=== PATIENT | female | born 1945 | race Caucasian/White ===

== ENCOUNTER → 2016-08-13 | Outpatient (CLI) | payer MEDICARE, BC ==
[~2016-08-13] MED LIST: ALLEGRA ALLERG180 MG PO; ASPIRIN81 M2 PO; BENZONATATE PO; DIOVAN HCT 320/1 TA2 PO; EVISTA60 M1 PO; FERRO-TIME325 MG PO; LIPITOR20 MG PO; METFORMIN HCL500 M2 PO; MULTIVITAMIN1 UDCAP PO; SYNTHROID75 MCG PO
--- NOTE | ~2016-08-13 | CT55 ---
[facility] A Service of [facility] & [facility] RADIOLOGY TEXT RESULTS PATIENT: LUIS TITUS LOCATION: [facility] : [birth year] UNIT #: [id number] AGE: [address]: Vincenzo Barlow MD SEX: F ORDER DR: [id number] [place] [id number] [facility]. [place], [place] [address] [id number] O MR#: [id number] [facility] #: [id number] NAME: LUIS TITUS : 1945 SEX: F STUDY DATE/TIME: 08/13/2016 16:34 UNIT: [facility] ROOM: STUDY DESCRIPTION: CT Chest W Con Attending Physician: Vincenzo Barlow M.D. Referring Physician: Vincenzo Barlow M.D. Ordering Physician: Vincenzo Barlow M.D. Primary Care Physician: Ai Root M.D. MEDICAL IMAGING REPORT This report is preliminary unless electronic signature is present EXAM CT chest with contrast. INDICATIONS Malignant neoplasm of the left breast. Restaging. Observation for metastatic disease. TECHNIQUE CT of the thorax utilizing 70 mL Isovue-370 IV contrast. Coronal and sagittal reconstructions were obtained. COMPARISON CT thorax dated 02/19/2016, 08/02/2015, 06/19/2014 and 03/14/2014. FINDINGS There is complete atelectasis and volume loss associated with the right upper lobe. The right upper lobe bronchus is occluded shortly after the origin. The appearance is unchanged from the prior study. There is a linear scar like area in the anterior aspect of the left upper lobe is also unchanged measuring up to 1.4 cm. No new pulmonary opacities. No pathologically enlarged mediastinal or hilar lymph nodes. The thoracic aorta is unchanged. No pericardial or pleural effusion. Limited images of the upper abdomen were obtained. No new findings are identified. There is a large exophytic cyst off the superior pole of left kidney. No new osseous abnormalities. IMPRESSION 1. No evidence of disease progression. 2. Complete atelectasis of the right upper lobe and the linear area of [facility] A Service of [facility] & [facility] RADIOLOGY TEXT RESULTS PATIENT: LUIS TITUS LOCATION: [facility] : 45 UNIT #: [id number] AGE: [address]: Vincenzo Barlow MD SEX: F ORDER DR: scarring/atelectasis in the anterior left upper lobe are unchanged from the prior study. 3. No new or suspicious findings. Dictated by... Live Johnston M.D. THIS IS AN ELECTRONICALLY VERIFIED REPORT Live Johnston M.D. at 08/14/2016 10:58 AM RALF/farrah TD: 08/14/2016 08:28 JOB #: [id number] MEDICAL IMAGING REPORT COPY
[2016-08-13 15:43] LABS: POC - GFR >60.0 mL/min (>60)
== END | disposition home or self-care (01) ==
LOC: CCAT 14:31
PROVIDERS: Internal Medicine Medical Oncology
DX: C50.912 Malignant neoplasm of unspecified site of left female breast (principal); J98.11 Atelectasis
CPT/HCPCS: 71260; 82565; Q9967

== ENCOUNTER → 2017-01-12 | Outpatient (CLI) | payer MEDICARE, BC ==
--- NOTE | ~2017-01-12 | MY28 ---
[facility] A Service of [facility] RADIOLOGY TEXT RESULTS PATIENT: LUIS TITUS LOCATION: [facility] : 45 UNIT #: [id number] AGE: [address]: Ai Root MD SEX: F ORDER DR: [id number] [facility] [address] [facility]. [place], [place] [address] [id number] O MR#: [id number] Acc #: [id number] NAME: LUIS TITUS : 1945 SEX: F STUDY DATE/TIME: 01/12/2017 12:41 UNIT: [facility] ROOM: STUDY DESCRIPTION: MY DIA SCREEN W/ CAD UNI RT Attending Physician: Ai Root M.D. Referring Physician: Ai Root M.D. Ordering Physician: Ai Root M.D. Primary Care Physician: Ai Root M.D. MEDICAL IMAGING REPORT This report is preliminary unless electronic signature is present EXAM Unilateral right screening mammogram, 01/12/2017 HISTORY 72-year-old woman status post left mastectomy age 62. Annual screen. COMPARISON Mammograms date to 09/26/2005, with most recent screening comparison 12/27/2015. FINDINGS Digital imaging of the right breast was completed utilizing screening protocol. Review includes FDA-approved CAD device. Breast parenchyma is dense, with small nodular pattern and subareolar duct prominence. Image-guided biopsy marker stable outer hemisphere, right breast. I see no interval occurring breast mass. There are no suspicious microcalcifications and no architectural deformity. IMPRESSION Stable benign unilateral right mammogram. Status post left mastectomy. Annual screening recommended. Patients over the age of 40 are entered into a reminder system with target due date for the next mammogram. A result letter will also be sent to the patient. BIRADS: 2 Benign Finding Dictated by... Wai Carr M.D. [facility] A Service of [facility] RADIOLOGY TEXT RESULTS PATIENT: LUIS TITUS LOCATION: [facility] : 45 UNIT #: [id number] AGE: [address]: Ai Root MD SEX: F ORDER DR: THIS IS AN ELECTRONICALLY VERIFIED REPORT Wai Crar M.D. at 01/13/2017 8:08 AM SUE/parveen TD: 01/12/2017 21:14 JOB #: [id number] MEDICAL IMAGING REPORT Page 1 of 1 COPY
== END | disposition home or self-care (01) ==
LOC: CWCC 12:12 → CMAM 12:30 → CWCC 12:30
DX: Z12.31 Encounter for screening mammogram for malignant neoplasm of breast (principal); Z85.3 Personal history of malignant neoplasm of breast; Z90.12 Acquired absence of left breast and nipple
CPT/HCPCS: G0202

== ENCOUNTER → 2017-02-24 | Outpatient (CLI) | payer MEDICARE, BC ==
--- NOTE | ~2017-02-24 | CT55 ---
[facility] A Service of [facility] RADIOLOGY TEXT RESULTS PATIENT: LUIS TITUS LOCATION: [facility] : 45 UNIT #: [id number] AGE: [address]: Vincenzo Barlow MD SEX: F ORDER DR: [id number] [facility] [address] [facility]. [place], [place] [address] [id number] O MR#: [id number] Acc #: [id number] NAME: LUIS TITUS : 1945 SEX: F STUDY DATE/TIME: 02/24/2017 14:35 UNIT: [facility] ROOM: STUDY DESCRIPTION: CT Chest W Con Attending Physician: Vincenzo Barlow M.D. Referring Physician: Vincenzo Barlow M.D. Ordering Physician: Vincenzo Barlow M.D. Primary Care Physician: Ai Root M.D. MEDICAL IMAGING REPORT This report is preliminary unless electronic signature is present EXAM CT chest with contrast. INDICATIONS Restaging breast cancer. Observation for metastatic disease. PROCEDURE Contrast-enhanced CT of the chest. This CT exam was performed with one or more of the following radiation dose reduction techniques: automatic exposure control, adjustment of mA and/or kV according to patient size, and iterative reconstruction. COMPARISON 08/14/2016 FINDINGS Linear atelectasis or scarring left upper lobe is stable. Stable complete atelectasis of the right upper lobe. No new suspicious pulmonary nodule. Previous left mastectomy. No adenopathy. No evidence for metastatic disease in the upper abdomen. There are a few small stones in the gallbladder. Stable left renal cyst. No aggressive appearing bone lesion. IMPRESSION 1. No convincing evidence for metastatic disease to the chest. 2. Stable complete atelectasis of the right upper lobe and linear scarring or atelectasis in the left upper lobe. Dictated by... Aleksandar Woodard M.D. THIS IS AN ELECTRONICALLY VERIFIED REPORT Aleksandar Woodard M.D. at 02/25/2017 8:07 AM [facility] A Service of [facility] RADIOLOGY TEXT RESULTS PATIENT: LUIS TITUS [id number] [birth year] UNIT #: [id number] AGE: [address]: Vincenzo Barlow MD SEX: F ORDER DR: Jessica TD: 02/24/2017 23:57 JOB #: [id number] MEDICAL IMAGING REPORT Page 1 of 1 COPY
[2017-02-24 17:01] LABS: POC - CREATININE 0.71 mg/dL (0.44-1.03); POC - GFR >60.0 mL/min (>60)
== END | disposition home or self-care (01) ==
LOC: CCAT 13:48
PROVIDERS: Internal Medicine Medical Oncology
DX: C50.919 Malignant neoplasm of unspecified site of unspecified female breast (principal); J98.11 Atelectasis
CPT/HCPCS: 71260; 82565; Q9967